=== PATIENT | male | born 1960 | race Caucasian/White ===

== ENCOUNTER 2018-06-29 10:11 | Emergency (ER) | payer MEDICARE, OTHER ==
[2018-06-29] MEDS ORDERED: IPRATROPIUM/ALBUTEROL 0.5-2.5 MG/3 ML AMPUL NEB ONE (10:58)
--- NOTE | 2018-06-29 10:59 | ER Document Report ---
ED Medical Screen (RME) - General Chief Complaint: Shortness Of Breath Stated Complaint: TOOTHACHE, FEVER, COUGH Time Seen by Provider: 06/29/18 10:57 Notes: 89 years old male with a history of COPD congestive heart failure with EF of 15 %, still smoking presents today with cough bringing up yellow sputum and wheezing, shortness of breath. He does not ambulate he has a scooter. Also complained of some toothache pain. TRAVEL OUTSIDE OF THE [place] IN LAST 30 DAYS: No - Related Data Allergies/Adverse Reactions: Iodine and Iodide Containing Produc Allergy (Verified 06/29/18 10:16) lisinopril Allergy (Verified 06/29/18 10:16) prednisone Allergy (Verified 06/29/18 10:16) Physical Exam - Vital signs Vitals: Temp Pulse Resp BP Pulse Ox 97.5 F 77 16 113/78 90 L 06/29/18 10:15 06/29/18 10:15 06/29/18 10:15 06/29/18 10:15 06/29/18 10:15 Course - Vital Signs Vital signs: Temp Pulse Resp BP Pulse Ox 97.5 F 77 16 113/78 90 L 06/29/18 10:15 06/29/18 10:15 06/29/18 10:15 06/29/18 10:15 06/29/18 10:15
--- NOTE | 2018-06-29 11:20 | RADIOLOGY REPORT (SQ) ---
EXAM DESCRIPTION: CHEST SINGLE VIEW COMPLETED DATE/TIME: 06/29/2018 11:09 am REASON FOR STUDY: Cough and wheezing COMPARISON: None. EXAM PARAMETERS: NUMBER OF VIEWS: One view. TECHNIQUE: Single frontal radiographic view of the chest acquired. RADIATION DOSE: NA LIMITATIONS: None. FINDINGS: LUNGS AND PLEURA: No opacities, masses or pneumothorax. No pleural effusion. Chronic appe aring changes are identified. MEDIASTINUM AND HILAR STRUCTURES: No masses. Contour normal. HEART AND VASCULAR STRUCTURES: Heart normal in size. Normal vasculature. BONES: No acute findings. HARDWARE: AICD device is identified in position. OTHER: No other significant finding. IMPRESSION: NO ACUTE RADIOGRAPHIC FINDING IN THE CHEST. TECHNICAL DOCUMENTATION: JOB ID: [id number] [employer]- All Rights Reserved Reading location - IP/workstation name: [email or web address]
[2018-06-29 11:37] LABS: APPEARANCE,URINE CLEAR; BILIRUBIN,URINE NEGATIVE (NEGATIVE); COLOR,URINE YELLOW; GLUCOSE, URINE NEGATIVE (NEGATIVE); KETONES,URINE NEGATIVE (NEGATIVE); LEUKOCYTE ESTERASE,URINE NEGATIVE (NEGATIVE); NITRITE,URINE NEGATIVE (NEGATIVE); PROTEIN,URINE NEGATIVE (NEGATIVE); URINE SPECIFIC GRAVITY 1.012; UROBILINOGEN,URINE NEGATIVE mg/dL (<2.0)
[2018-06-29 11:49] LABS: ABSOLUTE EOSINOPHILS # (AUTO) 0.2 10^3/uL (0.0-0.6); ABSOLUTE LYMPHOCYTES (AUTO) 3.3 10^3/uL (0.5-4.7); ABSOLUTE MONOCYTES (AUTO) 0.7 10^3/uL (0.1-1.4); ABSOLUTE NEUT (AUTO) 5.8 10^3/uL (1.7-8.2); BASOPHILS % (AUTO) 0.4 % (0-2); EOSINOPHILS % (AUTO) 1.6 % (0-6); HEMATOCRIT 46.2 % (37.9-51.0); HEMOGLOBIN 16.3 g/dL (13.5-17.0); LYMPHOCYTES % (AUTO) 32.6 % (13-45); MEAN CORPUSCULAR HEMOGLOBIN 33.2 pg (27.0-33.4); MEAN CORPUSCULAR HGB CONC 35.2 g/dL (32.0-36.0); MEAN CORPUSCULAR VOLUME 95 fl (80-97); MONOCYTES % (AUTO) 7.5 % (3-13); PLATELET COUNT 152 10^3/uL (150-450); RED BLOOD COUNT 4.89 10^6/uL (4.35-5.55); RED CELL DISTRIBUTION WIDTH 14.6 % (11.5-14.0); SEGMENTED NEUTROPHILS % (AUTO) 57.9 % (42-78); TOTAL CELLS COUNTED % (AUTO) 100 %
[2018-06-29 12:13] LABS: ALANINE AMINOTRANSFERASE 14 U/L (21-72); ALBUMIN 4.5 g/dL (3.5-5.0); ALKALINE PHOSPHATASE 72 U/L (38-126); ANION GAP 11 (5-19); ASPARTATE AMINO TRANSFERASE 28 U/L (17-59); BILIRUBIN,DIRECT 0.2 mg/dL (0.0-0.4); BILIRUBIN,TOTAL 0.9 mg/dL (0.2-1.3); BLOOD UREA NITROGEN 15 mg/dL (7-20); CALCIUM 9.7 mg/dL (8.4-10.2); CARBON DIOXIDE 30 mmol/L (22-30); CHLORIDE 99 mmol/L (98-107); GLUCOSE 126 mg/dL (75-110); POTASSIUM 4.3 mmol/L (3.6-5.0); SODIUM 140.3 mmol/L (137-145); TOTAL PROTEIN 8.4 g/dL (6.3-8.2)
--- NOTE | 2018-06-29 12:51 | ER Document Report ---
ED General - General Mode of Arrival: Wheelchair Information source: Patient TRAVEL OUTSIDE OF THE [place] IN LAST 30 DAYS: No <GERARDO HAILE - Last Filed: 06/29/18 12:54> <MAR FERNANDO - Last Filed: 06/29/18 14:39> - General Chief Complaint: Shortness Of Breath Stated Complaint: TOOTHACHE, FEVER, COUGH Time Seen by Provider: 06/29/18 10:57 Notes: Patient is a 58-year-old male with CHF (EF 15%), pacemaker defibrillator x3, multiple stents (last place in approximately 2004) diabetes type 2, HTN, hyperlipidemia, presents to the emergency department complaining of a productive cough, congestion, wheezing and shortness of breath onset a few weeks ago. Patient states he presented today because his symptoms have not improved. Patient describes is sputum as yellowish green in appearance. Patient's PCP is Dr. Alonso in [place]. Patient reports being on 3 L of CPAP at night. (GERARDO HAILE) The patient does give a confusing history stating that he has congestive heart failure with an EF of 15% most recently, it was 25% not long ago, and was 76% a year or 2 ago. He also reports his last cardiac catheterization was in 2004 and possibly that was when his last of several stents was placed. He does have pulmonary fibrosis and COPD. He reports having a yellow productive cough for a few weeks, and really just came in today because is not getting better on his own. He does have several medications he uses for his COPD at home. He states he is allergic to prednisone, but states the allergy is that it caused him to have diabetes and that it caused him to have osteoporosis. He is not on prednisone at this time and prefers not to be if possible. Patient does have obstructive sleep apnea, uses CPAP at night with 3 L O2. He does not need oxygen during the day normally. (MAR FERNANDO) - Related Data Allergies/Adverse Reactions: Iodine and Iodide Containing Produc Allergy (Verified 06/29/18 10:16) lisinopril Allergy (Verified 06/29/18 10:16) prednisone Allergy (Verified 06/29/18 10:16) Past Medical History - General Information source: Patient - Social History Smoking Status: Current Every Day Smoker Chew tobacco use (# tins/day): No Frequency of alcohol use: None Drug Abuse: None Family History: Reviewed & Not Pertinent Patient has suicidal ideation: No Patient has homicidal ideation: No - Past Medical History Cardiac Medical History: Reports: Hx Atrial Fibrillation - Paroxysmal, Hx Congestive Heart Failure - EF 15%, Hx Hypertension, Other - Ischemic cardiomyopathy Pulmonary Medical History: Reports: Hx COPD Endocrine Medical History: Reports: Hx Diabetes Mellitus Type 2 Musculoskeletal Medical History: Reports Other - Neuropathy Psychiatric Medical History: Reports: Hx Borderline Personality Disorder Past Surgical History: Reports: Hx Appendectomy, Hx Cardiac Catheterization - multiple, last one in 2004, Hx Pacemaker - x3, Hx Tonsillectomy, Other - Cardiac stents- multiple, last place in 2004 <GERARDO HAILE - Last Filed: 06/29/18 12:54> Review of Systems - Review of Systems Constitutional: No symptoms reported EENT: See HPI, Nose congestion Cardiovascular: No symptoms reported Respiratory: See HPI, Cough, Short of breath, Wheezing Gastrointestinal: No symptoms reported Genitourinary: No symptoms reported Male Genitourinary: No symptoms reported Musculoskeletal: No symptoms reported Skin: No symptoms reported Hematologic/Lymphatic: No symptoms reported Neurological/Psychological: No symptoms reported -: Yes All other systems reviewed and negative <GERARDO HAILE - Last Filed: 06/29/18 12:54> Physical Exam <GERARDO HAILE - Last Filed: 06/29/18 12:54> <MAR FERNANDO - Last Filed: 06/29/18 14:39> - Vital signs Vitals: Temp Pulse Resp BP Pulse Ox 97.5 F 77 16 113/78 90 L 06/29/18 10:15 06/29/18 10:15 06/29/18 10:15 06/29/18 10:15 06/29/18 10:15 - Notes Notes: GENERAL: Alert, interacts well. No acute distress. HEAD: Normocephalic, atraumatic. EYES: Pupils equal, round, and reactive to light. Extraocular movements intact. ENT: Oral mucosa moist, tongue midline. Nares patent, no nasal septal hematoma, TM's intacts. Several missing and decayed teeth NECK: Full range of motion. Supple. Trachea midline. LUNGS: Wheezes and rhonchi. 90% on room air. No respiratory distress. HEART: Regular rate and rhythm. No murmurs, gallops, or rubs. ABDOMEN: Soft, obese. Non-tender. Non-distended. Bowel sounds present in all 4 quadrants. EXTREMITIES: Moves all 4 extremities spontaneously. No edema, radial and dorsalis pedis pulses 2/4 bilaterally. No cyanosis. NEUROLOGICAL: Alert and oriented x3. Normal speech. [cranial nerves II through XII grossly intact]. Biceps and patellar DTRs 2+ bilaterally. PSYCH: Normal affect, normal mood. SKIN: Warm, dry, normal turgor. No rashes or lesions noted. (GERARDO HAILE) Course - Laboratory Result Diagrams: 06/29/18 11:25 06/29/18 11:25 <GERARDO HAILE - Last Filed: 06/29/18 12:54> - Laboratory Result Diagrams: 06/29/18 11:25 06/29/18 11:25 - Diagnostic Test Radiology reviewed: Image reviewed, Reports reviewed - Chest x-ray does show chronic lung disease without acute changes. - EKG Interpretation by [facility] EKG shows normal: [place], Intervals, QRS Complexes, ST-T Waves Rate: Normal - 67 Rhythm: Other - Atrial-sensed ventricular-paced rhythm When compared to previous EKG there are: Previous EKG unavailable <MAR FERNANDO - Last Filed: 06/29/18 14:39> - Vital Signs Vital signs: Temp Pulse Resp BP Pulse Ox 97.5 F 77 18 113/78 90 L 06/29/18 10:15 06/29/18 10:15 06/29/18 10:51 06/29/18 10:15 06/29/18 11:25 - Laboratory Laboratory results interpreted by [facility]: 06/29/18 06/29/18 11:25 11:25 RDW 14.6 H Glucose 126 H ALT 14 L Total Protein 8.4 H Discharge <GERARDO HAILE - Last Filed: 06/29/18 12:54> <MAR FERNANDO - Last Filed: 06/29/18 14:39> - Discharge Clinical Impression: Bronchitis, Pulmonary fibrosis COPD (chronic obstructive pulmonary disease) Qualifiers: COPD type: chronic bronchitis Chronic bronchitis type: unspecified Qualified Code(s): J42 - Unspecified chronic bronchitis Condition: Stable Disposition: HOME, SELF-CARE Additional Instructions: Bronchitis with Bronchospasm (Wheezing) You have bronchitis with bronchospasm (wheezing). Sometimes people develop wheezing with a chest cold. This occurs either because of an underlying tendency toward asthma or because the virus itself irritates the bronchial tubes. This irritation causes cough, shortness of breath, and wheezing. Emergency treatment of bronchospasm may include adrenaline shots or bronchodilator aerosol. You may feel lightheaded and have a rapid pulse for an hour or two. Rest and get plenty of fluids. At home, we'll treat you with a bronchodilator inhaler. Corticosteroids may be required for some patients. Until you recover, avoid chemical fumes, dusts, pollens, and exercising in very cold or dry air. If you smoke, stop now! Most cases of bronchitis get better without antibiotics. We prescribe antibiotics when we believe bacteria are damaging your airways, or if there's high risk the bronchitis will worsen into pneumonia. Increase your fluid intake. A cool mist humidifier may make your lungs more comfortable. An expectorant (cough medicine that loosens phlegm) can help. Repeated episodes of bronchitis and bronchospasm may result in lung damage -- for example, chronic bronchitis, recurrent pneumonias, or emphysema. If you develop a fever, increased wheezing, chest pain, or severe shortness of breath, you should contact the doctor immediately. Take the antibiotics as prescribed. Continue all of your regular medications. Follow-up with your doctor if not improving, you may end up requiring prednisone if a course of antibiotics does not get your bronchitis to clear up. RETURN TO THE EMERGENCY ROOM IF ANY NEW OR WORSENING SYMPTOMS. Prescriptions: Doxycycline Hyclate 100 mg PO BID #20 tablet.dr Adamson Attestation: 06/29/18 14:09 I personally performed the services described in the documentation, reviewed and edited the documentation which was dictated to the scribe in my presence, and it accurately records my words and actions. (MAR FERNANDO)
[2018-06-29] MEDS ORDERED: ALBUTEROL SULFATE 0.083% NEB 2.5 MG/3 ML AMPUL NEB ONE (14:02)
[2018-06-29 14:43] VITALS: BP 102/77
--- NOTE | 2018-06-29 21:21 | EKG REPORT ---
SEVERITY:- ABNORMAL ECG - ATRIAL-SENSED VENTRICULAR-PACED RHYTHM : Confirmed by: Yesenia Leiva MD 29-Jun-2018 21:21:05
== END 2018-06-29 14:43 | disposition home or self-care (01) ==
LOC: ER 10:11
DX: J44.9 Chronic obstructive pulmonary disease, unspecified (principal); J84.10 Pulmonary fibrosis, unspecified; I11.0 Hypertensive heart disease with heart failure; I50.9 Heart failure, unspecified; E11.40 Type 2 diabetes mellitus with diabetic neuropathy, unspecified; R05 Cough; R09.81 Nasal congestion; R06.02 Shortness of breath; F17.200 Nicotine dependence, unspecified, uncomplicated; G47.33 Obstructive sleep apnea (adult) (pediatric); Z99.89 Dependence on other enabling machines and devices; Z95.5 Presence of coronary angioplasty implant and graft; Z95.810 Presence of automatic (implantable) cardiac defibrillator; Z88.8 Allergy status to other drugs, medicaments and biological substances
CPT/HCPCS: 93005; 94640 ×2; 99285; 36415; 87070; 87205; 85025; 80053; 81001; 84484; 71045; 93010; A9270 ×2; J7620

== ENCOUNTER → 2019-01-24 | Outpatient (CLI) | payer MEDICARE, OTHER ==
--- NOTE | 2019-01-24 14:18 | RADIOLOGY REPORT (SQ) ---
EXAM DESCRIPTION: CT CHEST WITHOUT COMPLETED DATE/TIME: 01/24/2019 1:37 pm REASON FOR STUDY: R91.1 SOLITARY PULMONARY NODULE R91.1 SOLITARY PULMONARY NODULE COMPARISON: 06/29/2018 TECHNIQUE: CT scan performed of the chest without intravenous contrast. Images reviewed with lung, soft tissue and bone windows. Reconstructed coronal and sagittal MPR images reviewed. All images st ored on PACS. All CT scanners at this facility use dose modulation, iterative reconstruction, and/or weight based d osing when appropriate to reduce radiation dose to as low as reasonably achievable (ALARA). [facility]: Dose Right [facility]: CareDose [facility]: Dose Right [facility]: Teradose 4D [facility]: Smart BlockSpring RADIATION DOSE: CT Rad equipment meets quality standard of care and radiation dose reduction techniq ues were employed. CTDIvol: 18.6 mGy. DLP: 695 mGy-cm. mGy. LIMITATIONS: No technical limitations. FINDINGS: LUNGS AND PLEURA: Bilateral reticular opacities and interlobular septal thickening with ar eas of honeycombing, greatest within the bilateral lower lobes. Additional mild scattered areas of t raction bronchiectasis. There are scattered additional nodular opacities bilaterally, largest discre te nodule within the right upper lobe measures 7 mm (series 4, image 21). No definite superimposed a irspace disease. No pleural effusion or pneumothorax. HILAR AND MEDIASTINAL STRUCTURES: Shotty mediastinal nodes, largest prevascular node measures 1 cm in short axis. No discrete hilar or axillary adenopathy. HEART AND VASCULAR STRUCTURES: No aneurysm. No pericardial effusion. Scattered coronary atheroscler osis. Left-sided cardiac pacer with leads in the right atrium, right ventricle and coronary sinus. UPPER ABDOMEN: No evidence of acute process. THYROID AND OTHER SOFT TISSUES: No masses. No adenopathy. BONES: No acute bony abnormality. No discrete lytic or blastic osseous lesions. HARDWARE: Left-sided cardiac pacer as above. OTHER: No other significant findings. IMPRESSION: 1. Bilateral fibrotic change with areas of honeycombing suggestive of probable UIP (usu al interstitial pneumonia) CT pattern. 2. Scattered pulmonary nodules, largest within the right upper lobe measuring 6 mm. Follow-up as be low. COMMENT: [place] CRITERIA FOR FOLLOW-UP OF PULMONARY NODULES Incidentally detected new nodules in persons 35 or older. HIGH RISK: History of smoking or other known risk factors. 6-8mm multiple solid nodules: LOW RISK: CT 3-6 mo; then consider CT 18-24 mo. HIGH RISK: CT 3-6 mo; t hen CT 18-24 mo. TECHNICAL DOCUMENTATION: JOB ID: [id number] Quality ID # [id number]: Final reports with documentation of one or more dose reduction techniques (e.g., Au tomated exposure control, adjustment of the mA and/or kV according to patient size, use of iterative reconstruction technique) 2010 [employer]- All Rights Reserved Reading location - IP/workstation name: [email or web address]
== END ==
LOC: RAD 13:09
PROVIDERS: ATTEND Internal Medicine Critical Care Medicine
DX: R91.1 Solitary pulmonary nodule (principal); J84.10 Pulmonary fibrosis, unspecified; Z72.0 Tobacco use
CPT/HCPCS: 71250

== ENCOUNTER → 2019-02-07 | Outpatient (CLI) | payer MEDICARE, OTHER ==
[2019-02-07 15:40] LABS: ABSOLUTE EOSINOPHILS # (AUTO) 0.2 10^3/uL (0.0-0.6); ABSOLUTE LYMPHOCYTES (AUTO) 2.7 10^3/uL (0.5-4.7); ABSOLUTE MONOCYTES (AUTO) 0.6 10^3/uL (0.1-1.4); ABSOLUTE NEUT (AUTO) 2.9 10^3/uL (1.7-8.2); BASOPHILS % (AUTO) 0.7 % (0-2); HEMOGLOBIN 15.9 g/dL (13.5-17.0); LYMPHOCYTES % (AUTO) 42.3 % (13-45); MEAN CORPUSCULAR HEMOGLOBIN 31.8 pg (27.0-33.4); MEAN CORPUSCULAR HGB CONC 33.8 g/dL (32.0-36.0); MEAN CORPUSCULAR VOLUME 94 fl (80-97); MONOCYTES % (AUTO) 9.1 % (3-13); PLATELET COUNT 119 10^3/uL (150-450); RED BLOOD COUNT 5.01 10^6/uL (4.35-5.55); RED CELL DISTRIBUTION WIDTH 15.2 % (11.5-14.0); SEGMENTED NEUTROPHILS % (AUTO) 44.9 % (42-78); TOTAL CELLS COUNTED % (AUTO) 100 %; WHITE BLOOD COUNT 6.5 10^3/uL (4.0-10.5)
[2019-02-07 16:05] LABS: ALANINE AMINOTRANSFERASE 18 U/L (21-72); ALBUMIN 4.2 g/dL (3.5-5.0); ALKALINE PHOSPHATASE 65 U/L (38-126); ANION GAP 6 (5-19); ASPARTATE AMINO TRANSFERASE 26 U/L (17-59); BILIRUBIN,DIRECT 0.3 mg/dL (0.0-0.4); BILIRUBIN,TOTAL 0.7 mg/dL (0.2-1.3); BLOOD UREA NITROGEN 12 mg/dL (7-20); C-REACTIVE PROTEIN 21.1 mg/L (<10.0); CALCIUM 9.4 mg/dL (8.4-10.2); CARBON DIOXIDE 29 mmol/L (22-30); CHLORIDE 102 mmol/L (98-107); GLUCOSE 134 mg/dL (75-110); POTASSIUM 4.4 mmol/L (3.6-5.0); TOTAL PROTEIN 7.6 g/dL (6.3-8.2)
[2019-02-07 16:16] LABS: ERYTHROCYTE SEDIMENTATION RATE 26 mm/hr (0-20)
[2019-02-09 13:37] LABS: SCLERODERMA-70 ANTIBODIES <0.2 AI (0.0-0.9); SMITH AB ANA <0.2 AI (0.0-0.9)
[2019-02-09 18:36] LABS: CYTOPLASMIC (C-ANCA) <1:20 titer (Neg:<1:20)
[2019-02-10 19:00] LABS: ATYPICAL PANCA <1:20 titer (Neg:<1:20)
[2019-02-11 18:38] LABS: IMMUNOGLOBULIN E 3511 IU/mL (6-495)
== END ==
LOC: LAB 15:03
PROVIDERS: ATTEND Internal Medicine Critical Care Medicine
DX: I50.9 Heart failure, unspecified (principal); R91.1 Solitary pulmonary nodule; Z72.0 Tobacco use; J84.10 Pulmonary fibrosis, unspecified; I48.0 Paroxysmal atrial fibrillation; E78.5 Hyperlipidemia, unspecified; E11.9 Type 2 diabetes mellitus without complications; K21.9 Gastro-esophageal reflux disease without esophagitis; G47.33 Obstructive sleep apnea (adult) (pediatric); G62.9 Polyneuropathy, unspecified; R16.0 Hepatomegaly, not elsewhere classified; Z45.02 Encounter for adjustment and management of automatic implantable cardiac defibrillator
CPT/HCPCS: 36415; 80053; 82103; 82104; 82164; 82785; 83880; 85025; 85652; 86021; 86038; 86140; 86225; 86235; 86430

== ENCOUNTER → 2019-06-22 | Outpatient (CLI) | payer MEDICARE, OTHER ==
--- NOTE | 2019-06-22 11:34 | RADIOLOGY REPORT (SQ) ---
EXAM DESCRIPTION: CHEST PA/LATERAL COMPLETED DATE/TIME: 06/22/2019 11:26 am REASON FOR STUDY: PRODUCTIVE COUGH COMPARISON: 06/29/2018 EXAM PARAMETERS: NUMBER OF VIEWS: two views TECHNIQUE: Digital Frontal and Lateral radiographic views of the chest acquired. RADIATION DOSE: NA LIMITATIONS: none FINDINGS: LUNGS AND PLEURA: Chronic interstitial changes. No acute infiltrate, effusion, or mass. MEDIASTINUM AND HILAR STRUCTURES: No masses or contour abnormalities. HEART AND VASCULAR STRUCTURES: Heart normal size. No evidence for failure. BONES: No acute findings. HARDWARE: Pacemaker/defibrillator. OTHER: No other significant finding. IMPRESSION: Chronic lung changes with no acute cardiopulmonary finding. TECHNICAL DOCUMENTATION: JOB ID: [id number] [employer]- All Rights Reserved Reading location - IP/workstation name: [email or web address]
[2019-06-22 11:41] LABS: APPEARANCE,URINE CLEAR; BILIRUBIN,URINE NEGATIVE (NEGATIVE); GLUCOSE, URINE NEGATIVE (NEGATIVE); KETONES,URINE NEGATIVE (NEGATIVE); LEUKOCYTE ESTERASE,URINE NEGATIVE (NEGATIVE); NITRITE,URINE NEGATIVE (NEGATIVE); PROTEIN,URINE NEGATIVE (NEGATIVE); URINE SPECIFIC GRAVITY 1.029
[2019-06-22 11:43] LABS: COLOR,URINE DARK YELLOW
[2019-06-22 12:43] LABS: ALKALINE PHOSPHATASE 68 U/L (38-126); ANION GAP 12 (5-19); ASPARTATE AMINO TRANSFERASE 26 U/L (17-59); BILIRUBIN,DIRECT 0.3 mg/dL (0.0-0.4); BILIRUBIN,TOTAL 1.1 mg/dL (0.2-1.3); BLOOD UREA NITROGEN 18 mg/dL (7-20); CALCIUM 9.3 mg/dL (8.4-10.2); CARBON DIOXIDE 23 mmol/L (22-30); CHLORIDE 107 mmol/L (98-107); GLUCOSE 163 mg/dL (75-110); POTASSIUM 4.4 mmol/L (3.6-5.0); TOTAL PROTEIN 7.2 g/dL (6.3-8.2)
[2019-06-23 13:36] LABS: CREATININE URINE 228.6 mg/dL (Not Estab.); MICROALBUMIN URINE 21.4 ug/mL (Not Estab.)
== END ==
LOC: OD 10:40
PROVIDERS: ATTEND Internal Medicine
DX: E11.9 Type 2 diabetes mellitus without complications (principal); I25.10 Atherosclerotic heart disease of native coronary artery without angina pectoris; R05 Cough; R31.9 Hematuria, unspecified
CPT/HCPCS: 36415; 71046; 80053; 81001; 82043; 82570; 83036

== ENCOUNTER → 2019-06-27 | Outpatient (CLI) | payer MEDICARE, OTHER ==
[2019-06-27 11:04] LABS: TRIGLYCERIDES 133 mg/dL (<150)
[2019-06-27 11:14] LABS: DIRECT LDL 111 mg/dL (<100)
== END ==
LOC: OD 09:48
PROVIDERS: ATTEND Internal Medicine
DX: E11.9 Type 2 diabetes mellitus without complications (principal); I25.10 Atherosclerotic heart disease of native coronary artery without angina pectoris; R05 Cough; R31.9 Hematuria, unspecified
CPT/HCPCS: 36415; 80061